=== PATIENT | male | born 1960 | race Caucasian/White ===

== ENCOUNTER → 2024-03-15 01:12 | Outpatient (CLI) | payer OTHER, SELFPAY ==
--- NOTE | 2024-03-15 | ETT_ITS ---
APPROVED REPORT Exam: Exercise Treadmill Patient Location: Out-Patient Room/Bed: Stress Nurse: Sonny Cade RN Ordering Provider:COLTEN RAJPUT, Contact Number: [phone] BMI: 34.18 Baseline Rhythm: Sinus Chang - resting ST/T wave abnormalities Indications: Abnormal EKG, non specific changes, suspicious for preveious anterior infart, Eval for h eart disease prior to hip surgery Medical History Medical History: Osteoarthritis, Right hip pain Cardiac Medications: None Allergies: None Cardiac Risk Factors: None Previous Cardiac Procedures: None Pretest Chest Pain Characteristics: None Exercise History: Indeterminate Physical Disabilities: Right hip Lung Sounds: Clear to auscultation, bilaterally Heart Sounds: Regular, s1/s2 Stress Test Details Test: Exercise stress testing was performed using a He protocol. Rest Stress HR Resting HR Supine: 54 bpm Max Heart Rate (APMHR): 157 bpm Resting HR Standin bpm Target HR (85% APMHR): 133 bpm Max HR Achieved: 140 bpm % of APMHR: 89 Recovery HR: 73 bpm HR response to stress: Normal HR response to stress BP Resting BP Supine: 142/86 mmHg Resting BP Standin/70 mmHg Max BP: 192/80 mmHg Recovery BP: 150/78 mmHg BP response to stress: Normal blood pressure response to stress. ECG Resting ECG: Sinus Bradycardia Ectopy: None Comment: Resting T/ST abnormalities Stress ECG: Sinus Tachycardia ST Change: No significant ST segment changes noted Arrhythmia: None Recovery ECG: Sinus Rhythm Recovery ST Change: No significant ST segment changes noted Recovery Arrhythmia: Rare PVC Clinical Reason for Termination: Target HR Achieved, Hip pain Stress Symptoms: None Exercise duration: 5 min03 sec Highest Stage Reached: Stage 2: 2.5 mph at 12% grade. Exercise capacity: 7.05 METs Angina Score: None Rate Pressure Product: [id number] Stress ECG Conclusion 1. Resting electrocardiogram was normal 2. Patient exercised on the He protocol and completed a workload of 7 METS 3. Normal heart rate and blood pressure response to exercise. The patient achieved 89% of predicted heart rate for age 4. There was no electrocardiographic evidence of myocardial ischemia 5. There were no symptoms suggestive of angina 6. Rare PVCs were seen Stress Test Summary STAGE Time (mins) Speed (mph) Grade (%) HR BP SpO2 SYMPTOMS METS Supine 54 142/86 97% Standing 59 140/70 1 3 1.7 10 110 4.5 2 6 2.5 12 138 7 1 min recovery 113 190/80 3 min recovery 81 192/80 6 min recovery 73 150/78 96% Noted ST/T resting abnormalities prior to test, resting EKG reviewed by , was okay with patien t proceeding with stress test.
== END ==
PROVIDERS: Visit Provider Physician Assistant
DX: R94.31 Abnormal electrocardiogram [ECG] [EKG] (principal)
CPT/HCPCS: 93017